=== PATIENT | male | born 1995 | race African-American/Black ===

== ENCOUNTER 2018-05-17 23:39 | Emergency (ER) | payer OTHER ==
[~2018-05-17] VITALS: Ht 177.8 cm; Wt 81.8 kg
[2018-05-17 23:56] VITALS: BP 156/88
[2018-05-18 00:28] LABS: BASOPHILS % (AUTO) 0.2 % (0.0-2.0); EOSINOPHILS % (AUTO) 0.1 % (1.0-6.0); HEMATOCRIT 45.3 % (41-53); HEMOGLOBIN 15.1 g/dL (13.5-17.5); LYMPHOCYTES % (AUTO) 14.3 % (22.0-44.0); MEAN CORPUSCULAR HEMOGLOBIN 29.2 pg (26.0-34.0); MEAN CORPUSCULAR HGB CONC 33.3 G/dL (31.0-37.0); MEAN CORPUSCULAR VOLUME 88 fL (80-100); MONOCYTES # (AUTO) 0.8 K/uL (0.1-1.0); MONOCYTES % (AUTO) 5.8 % (2.0-9.0); NEUTROPHILS # (AUTO) 11.2 K/uL (1.8-7.7); NEUTROPHILS % (AUTO) 79.6 % (40.0-70.0); PLATELET COUNT (AUTO) 324 K/uL (150-450); RED BLOOD CELL COUNT(AUTO) 5.16 MIL/uL (4.50-5.90)
[2018-05-18] MEDS ORDERED: PERTUSS(ACELL),DIPH,TET VAC/PF 0.5 ML VIAL IM ONE (00:30)
[2018-05-18] MEDS ORDERED: BACITRACIN 0.9 GM PACKET OINTMENT TP ONE (00:30)
[2018-05-18] MEDS ORDERED: BUPIVACAINE HCL/PF 0.25% 10 ML VIAL INJ ONE (00:30)
[2018-05-18 00:33] LABS: ANION GAP 15 mmol/L (8-16); CALCIUM, TOTAL 8.9 mg/dL (8.8-10.5); CARBON DIOXIDE 22 mmol/L (22-29); CHLORIDE 104 mmol/L (98-107); CREATININE 1.21 mg/dL (0.60-1.30); GLOMERULAR FILTR. RATE CALC > 60 mL/min (>60); GLUCOSE,RANDOM 86 mg/dL (70-110); POTASSIUM 3.7 mmol/L (3.5-5.1); SODIUM SERUM 141 mmol/L (136-145); UREA NITROGEN, BLOOD 8 mg/dL (7-18)
[2018-05-18 00:38] LABS: ALANINE AMINOTRANSFERASE 25 U/L (12-78); ALBUMIN 4.6 g/dL (3.4-5.0); ALKALINE PHOSPHATASE 97 U/L (46-116); ASPARTATE AMINOTRANSFERASE 34 U/L (15-37); BILIRUBIN,TOTAL 0.7 mg/dL (0.1-1.0); TOTAL PROTEIN, SERUM 7.5 g/dL (6.4-8.2)
== END 2018-05-18 00:58 | disposition home or self-care (01) ==
LOC: EMS 23:41
DX: S01.112A Laceration without foreign body of left eyelid and periocular area, initial encounter (principal); F10.129 Alcohol abuse with intoxication, unspecified; Z02.89 Encounter for other administrative examinations; Y90.8 Blood alcohol level of 240 mg/100 ml or more; Y04.0XXA Assault by unarmed brawl or fight, initial encounter; Y93.89 Activity, other specified; Y92.89 Other specified places as the place of occurrence of the external cause; Y99.8 Other external cause status
CPT/HCPCS: 12011; 36415; 80053; 85025; 90471; 90715; 99284; G0480; J3490

== ENCOUNTER 2025-04-23 21:54 | Emergency (ER) | payer MEDICAID ==
[~2025-04-23] VITALS: Ht 177.8 cm; Wt 66.2 kg
[2025-04-23 22:49] VITALS: TEMP 98.9
[2025-04-23 23:20] LABS: COVID AG,FIA SOURCE NASAL SWAB
[2025-04-23 23:44] LABS: SARS-COV2 (COVID) ANTIGEN,FIA Negative (Negative)
[2025-04-24 00:06] LABS: APPEARANCE,URINE CLEAR (CLEAR); GLUCOSE, URINE (UA) NEGATIVE (NEGATIVE); LEUKOCYTE ESTERASE ,URINE SMALL (NEGATIVE); NITRATE,URINE NEGATIVE (NEGATIVE); OCCULT BLOOD,URINE NEGATIVE (NEGATIVE); SPECIFIC GRAVITIY, URINE 1.035 (1.003-1.030)
[2025-04-24 00:22] LABS: SQUAMOUS EPITHELIAL CELL,UR Rare /LPF (None Seen)
[2025-04-24 00:45] LABS: INFLUENZA TYPE A NEGATIVE FOR TYPE A (NEGATIVE); INFLUENZA TYPE B NEGATIVE FOR TYPE B (NEGATIVE)
[2025-04-24 02:30] VITALS: BP 148/102; PULSE 55; RESP 16; O2SAT 99
== END 2025-04-24 03:07 | disposition home or self-care (01) ==
LOC: EMS 21:55
DX: J06.9 Acute upper respiratory infection, unspecified (principal); B97.89 Other viral agents as the cause of diseases classified elsewhere; I10 Essential (primary) hypertension; F17.210 Nicotine dependence, cigarettes, uncomplicated; Z90.49 Acquired absence of other specified parts of digestive tract; Z88.0 Allergy status to penicillin; Z91.030 Bee allergy status; Z20.822 Contact with and (suspected) exposure to COVID-19
CPT/HCPCS: 71045; 81001; 87804; 99284

== ENCOUNTER 2025-04-27 16:02 | Emergency (ER) | payer MEDICAID ==
[~2025-04-27] VITALS: Ht 182.9 cm; Wt 80.0 kg
[2025-04-27 17:05] VITALS: TEMP 98
[2025-04-27 18:04] LABS: PLATELET COUNT (AUTO) 304 K/uL (150-450); RED BLOOD CELL COUNT(AUTO) 5.13 MIL/uL (4.50-5.90); RED CELL DISTRIBUTION WIDTH 13.0 % (11.5-14.5); WHITE BLOOD COUNT (AUTO) 6.2 K/uL (4.5-11.0)
[2025-04-27 18:08] LABS: CALCIUM, TOTAL 9.6 mg/dL (8.8-10.5); CREATININE 1.15 mg/dL (0.60-1.30); GLOMERULAR FILTR. RATE CALC > 60 mL/min (>60); GLUCOSE,RANDOM 78 mg/dL (70-110); SODIUM SERUM 136 mmol/L (136-145); UREA NITROGEN, BLOOD 12 mg/dL (7-18)
[2025-04-27 18:17] LABS: LACTIC ACID 1.5 mmol/L (0.4-2.0)
[2025-04-27 18:22] LABS: TROPONIN I-HIGH SENSITIVITY Less Than 4 ng/L (<76)
[2025-04-27 18:31] LABS: APPEARANCE,URINE CLEAR (CLEAR); GLUCOSE, URINE (UA) NEGATIVE (NEGATIVE); LEUKOCYTE ESTERASE ,URINE NEGATIVE (NEGATIVE); NITRATE,URINE NEGATIVE (NEGATIVE); OCCULT BLOOD,URINE NEGATIVE (NEGATIVE); PH,URINE DRUG SCREEN 6.5 (5.0-8.0); SPECIFIC GRAVITIY, URINE 1.019 (1.003-1.030)
[2025-04-27 18:38] LABS: ALCOHOL, URINE DRUG SCREEN NEGATIVE (NEGATIVE); AMPHET/METH SCREEN,URINE NEGATIVE (NEGATIVE); BARBITURATE SCREEN, URINE NEGATIVE (NEGATIVE); CANNABINOID SCREEN,URINE POSITIVE (NEGATIVE); COCAINE SCREEN,URINE NEGATIVE (NEGATIVE); METHADONE SCREEN, URINE NEGATIVE (NEGATIVE)
[2025-04-27 18:44] LABS: SQUAMOUS EPITHELIAL CELL,UR Rare /LPF (None Seen)
[2025-04-28 00:06] VITALS: BP 149/100; PULSE 64; RESP 18; O2SAT 98
[2025-04-28] MEDS ORDERED: AMLO2.5T96 PO (10:39)
[2025-04-28] MEDS ORDERED: BUPR-49 PO (10:39)
== END 2025-04-28 00:26 | disposition short-term general hospital (02) ==
LOC: EMS 16:04
DX: T76.21XA Adult sexual abuse, suspected, initial encounter (principal); I10 Essential (primary) hypertension; F33.2 Major depressive disorder, recurrent severe without psychotic features; Z88.0 Allergy status to penicillin; Z90.49 Acquired absence of other specified parts of digestive tract; Z91.030 Bee allergy status; Y99.8 Other external cause status
CPT/HCPCS: 71045; 80048; 80307; 81001; 83605; 84484; 85025; 93005; 99285; 36415-L1; 36415-TC